=== PATIENT | female | born 1965 | race Caucasian/White ===

== ENCOUNTER → 2019-08-21 | Outpatient (CLI) | payer OTHER ==
--- NOTE | 2019-08-21 15:44 | RAD ---
AP and Lateral Views of the Chest 08/21/2019 3:21 PM Indication: Cough, shortness of breath. Chest pain Comparison: None Findings: There is no focal consolidation or infiltrate identified. The cardiomediastinal silhouette is within normal limits. There is no evidence of pneumothorax or pleural effusion. No acute osseous abnormalities are identified. Impression: No evidence of acute cardiopulmonary process. Electronically signed by: Jarad Maldonado MD (08/21/2019 3:41 PM) [id number]
== END | disposition home or self-care (01) ==
LOC: PMG 15:14
PROVIDERS: ATTEND Registered Nurse
DX: R05 Cough (principal); R06.02 Shortness of breath; R07.9 Chest pain, unspecified
CPT/HCPCS: 71046

== ENCOUNTER → 2019-12-27 | Outpatient (CLI) | payer OTHER ==
--- NOTE | 2019-12-27 17:06 | RAD ---
EXAM: Lumbar spine, 3 views; left shoulder, 4 views. HISTORY: Pain. COMPARISON: None. FINDINGS: Lumbar spine: 3 views of the lumbar spine are obtained. There is no listhesis. The vertebral bodies are normal in height and the disc space are preserved. There is facet arthropathy at the lower lumbar levels. Left shoulder: 4 views of the left shoulder are obtained. There is no fracture, dislocation or subluxation. IMPRESSION: No acute osseous finding. Electronically signed by: Yamel Lopes MD (12/27/2019 5:03 PM) [id number]
== END | disposition home or self-care (01) ==
LOC: DXRAD 15:26
PROVIDERS: ATTEND Registered Nurse
DX: M47.816 Spondylosis without myelopathy or radiculopathy, lumbar region (principal)
CPT/HCPCS: 72100; 73030

== ENCOUNTER 2020-01-19 08:14 | Emergency (ER) | payer OTHER ==
[~2020-01-19] VITALS: Ht 160 cm; Wt 88.1 kg
[2020-01-19] MEDS ORDERED: IV NORMAL SALINE 1,000ML 1,000 ML IV SCH (08:32)
[2020-01-19 08:51] LABS: BASO # 0.1 x10^3/uL (0.0-0.2); BASO % 1 % (0-3); EOS # 0.5 x10^3/uL (0.0-0.7); EOS % 6 % (0-3); HEMATOCRIT 43.8 % (36.0-47.0); HEMOGLOBIN 14.7 g/dL (12.0-15.5); LYMPH % 23 % (24-48); MEAN CORPUSCULAR HEMOGLOBIN 30 pg (25-35); MEAN CORPUSCULAR HGB CONC 33 g/dL (31-37); MEAN CORPUSCULAR VOLUME 90 fL (79-100); MONO # 0.6 x10^3/uL (0.0-1.1); MONO % 6 % (0-9); NEUT # 5.8 x10^3uL (1.8-7.7); NEUT % 65 % (31-73); PLATELET COUNT 267 x10^3/uL (140-400); RED BLOOD COUNT 4.88 x10^6/uL (3.50-5.40); RED CELL DISTRIBUTION WIDTH 13.6 % (11.5-14.5); WHITE BLOOD COUNT 8.9 x10^3/uL (4.0-11.0)
[2020-01-19 08:59] LABS: CALCIUM 9.9 mg/dL (8.5-10.1); GFR 57.4; POTASSIUM 3.8 mmol/L (3.5-5.1)
[2020-01-19] MEDS ORDERED: ONDANSETRON PF 4 MG/2 ML VIAL. IVP ONE (09:00)
[2020-01-19 09:07] LABS: ALBUMIN 3.9 g/dL (3.4-5.0); ALBUMIN/GLOBULIN RATIO 1.1 (1.0-1.7); TOTAL BILIRUBIN 0.4 mg/dL (0.2-1.0); TOTAL PROTEIN 7.6 g/dL (6.4-8.2)
[2020-01-19] MEDS ORDERED: IOHEXOL 300 MG/ML 75 ML VIAL. IV ONE (09:30)
[2020-01-19] MEDS ORDERED: CONTRAST GIVEN MC PRN (09:30)
[2020-01-19 09:47] VITALS: BP 114/69
--- NOTE | 2020-01-19 10:19 | RAD ---
Examination: CT of the abdomen pelvis with IV contrast HISTORY: History of right lower quadrant abdominal pain, nausea COMPARISON: 12/16/2005 TECHNIQUE: Axial CT images of the abdomen pelvis were performed with IV contrast. Coronal and sagittal reformats are performed Exposure: One or more of the following individualized dose reduction techniques were utilized for this examination: 1. Automated exposure control 2. Adjustment of the mA and/or kV according to patient size 3. Use of iterative reconstruction technique FINDINGS: 3 mm nodule identified in the right lung base. No evidence of free air identified in the abdomen. There is mild decreased attenuation noted in the liver likely hepatic steatosis. The spleen, adrenals grossly appears unremarkable. Small density identified in the proximal gallbladder likely sludge or gallstones. The stomach is mildly distended. The visualized pancreas grossly appears unremarkable. The small bowel is nondilated. The appendix is normal. Feces and gas noted in the colon. Mild right-sided hydronephrosis and hydroureter identified with inflammatory fat stranding right kidney in the right kidney. An obvious radiopaque obstructing calculus is not identified within the right ureter Moderate degenerative changes lower lumbar spine. IMPRESSION: 1. Right-sided hydronephrosis and hydroureter identified with surrounding inflammatory fat stranding could be urinary tract infection or secondary to obstruction. An obstructing radiopaque calculus is not evident. Underlying right ureteral mucosal pathology is not completely excluded. 2. Mild hepatic steatosis. 3. Density identified in the proximal gallbladder could be sludge or gallstones. Electronically signed by: Toribio Linares MD (01/19/2020 10:15 AM) [id number]
[2020-01-19 10:23] LABS: BACTERIA,URINE FEW /HPF (0-FEW); BILIRUBIN,URINE NEG (NEG); CLARITY,URINE HAZY; COLOR,URINE YELLOW; GLUCOSE,URINE NEG (NEG); HYALINE CASTS, URINE FEW /HPF; NITRITE,URINE NEG (NEG); RBC,URINE 20-40 /HPF (0-2); SQUAMOUS EPITHELIAL CELL,UR MANY /LPF; UROBILINOGEN,URINE 0.2 mg/dL (0.2 mg/dL); WBC,URINE OCC /HPF (0-4)
[2020-01-19] MEDS ORDERED: KETO10TA PO (10:50)
[2020-01-19] MEDS ORDERED: OXYC1TAB19 PO (10:50)
[2020-01-19] MEDS ORDERED: ONDA4TAB12 PO (10:50)
--- NOTE | 2020-01-19 10:50 | PHYS DOC ---
Past History Past Medical History: Depression, Diabetes, High Cholesterol, Hypertension, Hypothyroid, Other Additional Past Medical Histor: sleep apnea Past Surgical History: No Surgical History Alcohol Use: None Adult General Chief Complaint Chief Complaint: ABDOMINAL PAIN HPI HPI Patient is a 55-year-old female who presents with complaint of right lower abdominal pain that radiates around into her back. Patient states that pain had started this morning. She rates pain at an 829 out of 10. She does indicate that she has had a little bit of nausea but no vomiting. She denies any diarrhea. She also denies any fever. Patient states that nothing is improving the pain.[] Review of Systems Review of Systems Constitutional: Denies fever or chills [] Respiratory: Denies cough or shortness of breath [] Cardiovascular: No additional information not addressed in HPI [] GI: Complains of right lower abdominal pain with nausea. Denies vomiting or diarrhea [] : Denies dysuria or hematuria [] Musculoskeletal: Denies back pain or joint pain [] All other systems were reviewed and found to be within normal limits, except as documented in this note. Current Medications Current Medications Current Medications Medications (Trade) Dose Ordered Sig/Shayan Start Time Stop Time Status Last Admin Dose Admin Fentanyl Citrate (Fentanyl 2ml Vial) 50 mcg PRN Q15MIN PRN 01/19/20 08:45 01/20/20 08:44 01/19/20 08:44 50 MCG Info (Do NOT chart on this entry -- for MONITORING) 1 each PRN DAILY PRN 01/19/20 09:30 01/21/20 09:29 Iohexol (Omnipaque 300 Mg/ml) 75 ml 1X ONCE 01/19/20 09:30 01/19/20 09:31 DC 01/19/20 09:52 75 ML Ondansetron HCl (Zofran) 4 mg 1X ONCE 01/19/20 09:00 01/19/20 09:01 DC 01/19/20 08:44 4 MG Sodium Chloride 1,000 ml @ 1,000 mls/hr Q1H 01/19/20 08:32 01/19/20 09:31 DC 01/19/20 08:44 1,000 MLS/HR Allergies Allergies Allergies Coded Allergies Type Severity Reaction Last Updated Verified morphine Allergy Unknown 01/19/20 Yes Physical Exam Physical Exam Constitutional: Well developed, well nourished, no acute distress, non-toxic appearance. [] HENT: Normocephalic, atraumatic, bilateral external ears normal, oropharynx moist, no oral exudates, nose normal. [] Eyes: PERRLA, EOMI, conjunctiva normal, no discharge. [] Neck: Normal range of motion, no tenderness, supple, no stridor. [] Cardiovascular:Heart rate regular rhythm, no murmur [] Lungs & Thorax: Bilateral breath sounds clear to auscultation [] Abdomen: Bowel sounds normal, soft, with right lower abdominal tenderness. [] Skin: Warm, dry, no erythema, no rash. [] Extremities: No tenderness, no cyanosis, no clubbing, ROM intact, no edema. [] Neurologic: Alert and oriented X 3, no focal deficits noted. [] Current Patient Data Vital Signs Vital Signs Date Time Temp Pulse Resp B/P (MAP) Pulse Ox O2 Delivery O2 Flow Rate FiO2 01/19/20 08:14 97.6 84 16 161/107 (125) 95 Room Air Lab Results Laboratory Tests Test 01/19/20 08:35 01/19/20 09:46 White Blood Count 8.9 x10^3/uL (4.0-11.0) Red Blood Count 4.88 x10^6/uL (3.50-5.40) Hemoglobin 14.7 g/dL (12.0-15.5) Hematocrit 43.8 % (36.0-47.0) Mean Corpuscular Volume 90 fL (79-100) Mean Corpuscular Hemoglobin 30 pg (25-35) Mean Corpuscular Hemoglobin Concent 33 g/dL (31-37) Red Cell Distribution Width 13.6 % (11.5-14.5) Platelet Count 267 x10^3/uL (140-400) Neutrophils (%) (Auto) 65 % (31-73) Lymphocytes (%) (Auto) 23 % (24-48) L Monocytes (%) (Auto) 6 % (0-9) Eosinophils (%) (Auto) 6 % (0-3) H Basophils (%) (Auto) 1 % (0-3) Neutrophils # (Auto) 5.8 x10^3uL (1.8-7.7) Lymphocytes # (Auto) 2.0 x10^3/uL (1.0-4.8) Monocytes # (Auto) 0.6 x10^3/uL (0.0-1.1) Eosinophils # (Auto) 0.5 x10^3/uL (0.0-0.7) Basophils # (Auto) 0.1 x10^3/uL (0.0-0.2) Sodium Level 143 mmol/L (136-145) Potassium Level 3.8 mmol/L (3.5-5.1) Chloride Level 106 mmol/L (98-107) Carbon Dioxide Level 27 mmol/L (21-32) Anion Gap 10 (6-14) Blood Urea Nitrogen 27 mg/dL (7-20) H Creatinine 1.0 mg/dL (0.6-1.0) Estimated GFR (Cockcroft-Gault) 57.4 BUN/Creatinine Ratio 27 (6-20) H Glucose Level 127 mg/dL (70-99) H Calcium Level 9.9 mg/dL (8.5-10.1) Total Bilirubin 0.4 mg/dL (0.2-1.0) Aspartate Amino Transferase (AST) 14 U/L (15-37) L Alanine Aminotransferase (ALT) 24 U/L (14-59) Alkaline Phosphatase 94 U/L (46-116) Total Protein 7.6 g/dL (6.4-8.2) Albumin 3.9 g/dL (3.4-5.0) Albumin/Globulin Ratio 1.1 (1.0-1.7) Lipase 248 U/L (73-393) Urine Collection Type Unknown Urine Color Yellow Urine Clarity Hazy Urine pH 6.0 Urine Specific [place] 1.015 Urine Protein Neg (NEG-TRACE) Urine Glucose (UA) Neg mg/dL (NEG) Urine Ketones (Stick) Neg mg/dL (NEG) Urine Blood Large (NEG) Urine Nitrite Neg (NEG) Urine Bilirubin Neg (NEG) Urine Urobilinogen Dipstick 0.2 mg/dL (0.2 mg/dL) Urine Leukocyte Esterase Neg (NEG) Urine RBC 20-40 /HPF (0-2) Urine WBC Occ /HPF (0-4) Urine Squamous Epithelial Cells Many /LPF Urine Bacteria Few /HPF (0-FEW) Urine Hyaline Casts Few /HPF Urine Mucus Mod /LPF EKG EKG [] Radiology/Procedures Radiology/Procedures [] Impressions: PROCEDURE: CT ABD PELV W/ IV CONTRST ONLY Examination: CT of the abdomen pelvis with IV contrast HISTORY: History of right lower quadrant abdominal pain, nausea COMPARISON: 12/16/2005 TECHNIQUE: Axial CT images of the abdomen pelvis were performed with IV contrast. Coronal and sagittal reformats are performed Exposure: One or more of the following individualized dose reduction techniques were utilized for this examination: 1. Automated exposure control 2. Adjustment of the mA and/or kV according to patient size 3. Use of iterative reconstruction technique FINDINGS: 3 mm nodule identified in the right lung base. No evidence of free air identified in the abdomen. There is mild decreased attenuation noted in the liver likely hepatic steatosis. The spleen, adrenals grossly appears unremarkable. Small density identified in the proximal gallbladder likely sludge or gallstones. The stomach is mildly distended. The visualized pancreas grossly appears unremarkable. The small bowel is nondilated. The appendix is normal. Feces and gas noted in the colon. Mild right-sided hydronephrosis and hydroureter identified with inflammatory fat stranding right kidney in the right kidney. An obvious radiopaque obstructing calculus is not identified within the right ureter Moderate degenerative changes lower lumbar spine. IMPRESSION: 1. Right-sided hydronephrosis and hydroureter identified with surrounding inflammatory fat stranding could be urinary tract infection or secondary to obstruction. An obstructing radiopaque calculus is not evident. Underlying right ureteral mucosal pathology is not completely excluded. 2. Mild hepatic steatosis. 3. Density identified in the proximal gallbladder could be sludge or gallstones. Electronically signed by: Toribio Linares MD (01/19/2020 10:15 AM) [id number] DICTATED AND SIGNED BY: TORIBIO LINARES MD DATE: 01/19/20 1015 CC: GASTON MARCELO Jr. DO; DAVID HDZ ~ Course & Med Decision Making Course & Med Decision Making Pertinent Labs and Imaging studies reviewed. (See chart for details) [] Dragon Disclaimer Dragon Disclaimer This electronic medical record was generated, in whole or in part, using a voice recognition dictation system. Departure Departure: Impression: Primary Impression: Ureterolithiasis Additional Impression: Hydronephrosis Disposition: 01 HOME, SELF-CARE Condition: STABLE Referrals: DAVID HDZ NP-C (PCP) SURINDER BECKER MD Patient Instructions: Kidney Stones Additional Instructions: Call to schedule follow-up appointment with urology. Scripts Ondansetron (ONDANSETRON ODT) 4 Mg Tab.rapdis 1 TAB PO PRN Q6-8HRS PRN for NAUSEA, #12 TAB Prov: GASTON MARCELO Jr. DO 01/19/20 Ketorolac Tromethamine (KETOROLAC TROMETHAMINE) 10 Mg Tablet 1 TAB PO PRN Q6HRS for pain, #20 TAB Prov: GASTON MARCELO Jr. DO 01/19/20 Oxycodone Hcl/Acetaminophen (PERCOCET 7.5-325 MG TABLET ) 1 Each Tablet 1 TAB PO PRN QID PRN for PAIN MDD 4 Tablet(s) for 5 Days, #20 TAB 0 Refills Prov: GASTON MARCELO Jr. DO 01/19/20 Problem Qualifiers Additional Impression: Hydronephrosis Hydronephrosis type: unspecified Qualified Codes: N13.30 - Unspecified hydronephrosis GASTON MARCELO Jr. DO Jan 19, 2020 10:50
== END 2020-01-19 11:00 | disposition home or self-care (01) ==
LOC: ER 08:14
DX: N13.2 Hydronephrosis with renal and ureteral calculous obstruction (principal); E11.9 Type 2 diabetes mellitus without complications; E78.00 Pure hypercholesterolemia, unspecified; I10 Essential (primary) hypertension; E03.9 Hypothyroidism, unspecified; Z88.5 Allergy status to narcotic agent
CPT/HCPCS: 36415; 74177; 80053; 81001; 83690; 85025; 96374; 96375; 99285; J2405; J3010; Q9967; J7030

== ENCOUNTER → 2020-08-28 | Outpatient (CLI) | payer OTHER ==
[~2020-08-28] MED LIST: 0.9 % SODIUM CHLORIDE 10 ML VIAL. ONE; ATORVASTATIN CA80 MG PO; DEXAMETHASONE SOD PHOS 10 MG/ML VIAL. ONE; DULO60CA6 PO; ICOS0.5C PO; IOHEXOL 300 MG/ML 50 ML VIAL. ONE; KETO10TA PO; LEVO175T2 PO; LIDOCAINE 1% PF 30 ML VIAL. ONE; LISI1TAB37 PO; METF10007 PO; METO-239 PO; ONDA4TAB12 PO; OXYC1TAB19 PO; SEMA1PEN SQ
[2020-08-28 10:00] VITALS: BP 198/85
== END | disposition home or self-care (01) ==
LOC: SURG 09:20
PROVIDERS: ATTEND Anesthesiology
DX: M54.5 Low back pain (principal); M54.16 Radiculopathy, lumbar region; M54.12 Radiculopathy, cervical region; M79.10 Myalgia, unspecified site; M25.512 Pain in left shoulder; I10 Essential (primary) hypertension; E11.9 Type 2 diabetes mellitus without complications; E78.00 Pure hypercholesterolemia, unspecified; E03.9 Hypothyroidism, unspecified; F32.9 Major depressive disorder, single episode, unspecified; N13.2 Hydronephrosis with renal and ureteral calculous obstruction; Z90.710 Acquired absence of both cervix and uterus; Z88.5 Allergy status to narcotic agent; Z88.6 Allergy status to analgesic agent; Z98.890 Other specified postprocedural states
CPT/HCPCS: 62323; 72275; J1100; J2001; Q9967

== ENCOUNTER 2020-08-29 11:37 | Emergency (ER) | payer OTHER ==
[~2020-08-29] VITALS: Ht 160 cm; Wt 82.2 kg
[~2020-08-29 11:37] MED LIST changes: -0.9 % SODIUM CHLORIDE 10 ML VIAL. ONE; -DEXAMETHASONE SOD PHOS 10 MG/ML VIAL. ONE; -IOHEXOL 300 MG/ML 50 ML VIAL. ONE; -LIDOCAINE 1% PF 30 ML VIAL. ONE
[2020-08-29] MEDS ORDERED: ONDANSETRON PF 4 MG/2 ML VIAL. IVP ONE (12:00)
[2020-08-29 12:08] LABS: BASO # 0.2 x10^3/uL (0.0-0.2); BASO % 1 % (0-3); EOS % 0 % (0-3); HEMOGLOBIN 13.5 g/dL (12.0-15.5); LYMPH % 12 % (24-48); MEAN CORPUSCULAR HEMOGLOBIN 29 pg (25-35); MEAN CORPUSCULAR HGB CONC 33 g/dL (31-37); MEAN CORPUSCULAR VOLUME 89 fL (79-100); MONO # 1.1 x10^3/uL (0.0-1.1); MONO % 7 % (0-9); NEUT # 12.9 x10^3uL (1.8-7.7); NEUT % 80 % (31-73); PLATELET COUNT 340 x10^3/uL (140-400); RED BLOOD COUNT 4.61 x10^6/uL (3.50-5.40); RED CELL DISTRIBUTION WIDTH 14.1 % (11.5-14.5); WHITE BLOOD COUNT 16.2 x10^3/uL (4.0-11.0)
[2020-08-29 12:20] LABS: CALCIUM 9.7 mg/dL (8.5-10.1); CREATININE 1.1 mg/dL (0.6-1.0); GFR 51.4
--- NOTE | 2020-08-29 12:26 | RAD ---
EXAM: PORTABLE CHEST 1V INDICATION: Reason: CP / Spl. Instructions: / History: . TECHNIQUE: Single view COMPARISON: 08/21/2019 chest x-ray FINDINGS: The heart size is normal. The great vessels appear unremarkable. There is no hilar or mediastinal mass. The lungs are clear. There is no pleural effusion or pneumothorax. There are no significant osseous abnormalities. IMPRESSION: No active cardiopulmonary disease. Electronically signed by: Ashly Durán MD (08/29/2020 12:23 PM) [id number]
[2020-08-29 12:31] LABS: ALBUMIN 3.9 g/dL (3.4-5.0); ALBUMIN/GLOBULIN RATIO 1.1 (1.0-1.7); TOTAL BILIRUBIN 0.5 mg/dL (0.2-1.0); TOTAL PROTEIN 7.3 g/dL (6.4-8.2)
--- NOTE | 2020-08-29 13:07 | EKG ---
[address] [address] Test Date: 2020-08-29 Test Time: 12:41:59 Pat Name: SANTINO NOBLE Department: Room: Gender: F [employer]: : 1965 Requested By: CLAUDINE MAGUIRE Order Number: [id number] Reading MD: Raymond Mares Measurements Intervals [place] Rate: 77 P: 33 MS: 182 QRS: -20 QRSD: 82 T: 13 QT: 390 QTc: 443 Interpretive Statements SINUS RHYTHM LEFTWARD AXIS QRS(T) CONTOUR ABNORMALITY CONSIDER INFERIOR INFARCT POSSIBLY ABNORMAL ECG RI6.02 No previous ECG available for comparison Electronically Signed On 09-03-2020 11:30:03 PEDIATRIC PHYSICAL THERAPY ASSISTANT by Raymond Mares
[2020-08-29 14:47] LABS: % LYMPHS 15 % (24-48); % MONOS 3 % (0-10); % SEGS 82 % (35-66); PLT ESTIMATE ADEQUATE (ADEQUATE)
[2020-08-29 15:28] LABS: BACTERIA,URINE MOD /HPF (0-FEW); BILIRUBIN,URINE NEG (NEG); CLARITY,URINE HAZY; COLOR,URINE YELLOW; GLUCOSE,URINE NEG (NEG); NITRITE,URINE NEG (NEG); SQUAMOUS EPITHELIAL CELL,UR MANY /LPF; UROBILINOGEN,URINE 0.2 mg/dL (0.2 mg/dL)
--- NOTE | 2020-08-29 15:52 | RAD ---
Right upper quadrant abdominal ultrasound INDICATION: Right upper quadrant abdominal pain FINDINGS: Echogenic liver, consistent with fatty infiltration. No mass or contour nodularity. Patent, normal directional flow in the main portal vein. The gallbladder shows diffuse wall thickening up to 4.9 mm and there is a positive sonographic Apple sign. Some pericholecystic fluid is also seen. No definite gallstones. Right kidney is normal measuring 10.2 x 5.1 x 4.8 cm. Pancreas is poorly visualized due to bowel gas. The IVC and abdominal aorta were poorly visualized as well due to bowel gas. IMPRESSION: Findings consistent with acute cholecystitis. No biliary dilation identified. Electronically signed by: Ashly Durán MD (08/29/2020 3:49 PM) [id number]
[2020-08-29] MEDS ORDERED: IV NORMAL SALINE 1,000ML 1,000 ML IV ONE (16:15)
[2020-08-29] MEDS ORDERED: PIPERACILLIN/TAZOBACTAM 3.375 GM in IV NORMAL SALINE 50ML 50 ML IV ONE (16:15)
[2020-08-29] MEDS ORDERED: PIPERACILLIN/TAZOBACTAM 3.375 GM VIAL IV ONE (16:22)
[2020-08-29] MEDS ORDERED: IV NORMAL SALINE 50ML 50 ML ONE (16:22)
--- NOTE | 2020-08-29 17:34 | PHYS DOC ---
Past History Past Medical History: Depression, Diabetes, High Cholesterol, Hypertension, Hypothyroid, Other Additional Past Medical Histor: sleep apnea Past Surgical History: Hysterectomy Alcohol Use: None Adult General Chief Complaint Chief Complaint: CHEST PAIN HPI HPI Patient is a 55-year-old female patient with history of hypertension, high cholesterol, diabetes type 2, who presents to the ED today complaining of sharp intermittent 7 out of 10 right upper quadrant abdominal pain radiating to the back that began this morning when she woke up. Patient is also complaining of nausea and vomiting. Denies anything specifically exacerbating or relieving her pain. Review of Systems Review of Systems Constitutional: Denies fever or chills [] Eyes: Denies change in visual acuity, redness, or eye pain [] HENT: Denies nasal congestion or sore throat [] Respiratory: Denies cough or shortness of breath [] Cardiovascular: No additional information not addressed in HPI [] GI: Reports right upper quadrant abdominal pain with nausea and vomiting, denies bloody stools or diarrhea [] : Denies dysuria or hematuria [] Musculoskeletal: Denies back pain or joint pain [] Integument: Denies rash or skin lesions [] Neurologic: Denies headache, focal weakness or sensory changes [] All other systems were reviewed and found to be within normal limits, except as documented in this note. Current Medications Current Medications Current Medications Medications (Trade) Dose Ordered Sig/Shayan Start Time Stop Time Status Last Admin Dose Admin Fentanyl Citrate (Fentanyl 2ml Vial) 50 mcg 1X ONCE 08/29/20 17:00 08/29/20 17:01 DC 08/29/20 16:53 50 MCG Ondansetron HCl (Zofran) 4 mg 1X ONCE 08/29/20 12:00 08/29/20 12:01 DC 08/29/20 11:56 4 MG Piperacillin Sod/ Tazobactam Sod (Zosyn) 3.375 gm STK-MED ONCE 08/29/20 16:22 08/29/20 16:23 DC Piperacillin Sod/ Tazobactam Sod 3.375 gm/Sodium Chloride 50 ml @ 100 mls/hr 1X ONCE 08/29/20 16:15 08/29/20 16:44 DC 08/29/20 16:25 100 MLS/HR Sodium Chloride 50 ml @ As Directed STK-MED ONCE 08/29/20 16:22 08/29/20 16:22 DC Allergies Allergies Allergies Coded Allergies Type Severity Reaction Last Updated Verified morphine Allergy Unknown 01/19/20 Yes Physical Exam Physical Exam Constitutional: Well developed, well nourished, no acute distress, non-toxic appearance. [] HENT: Normocephalic, atraumatic, bilateral external ears normal, oropharynx moist, no oral exudates, nose normal. [] Eyes: PERRLA, EOMI, conjunctiva normal, no discharge. [] Neck: Normal range of motion, no tenderness, supple, no stridor. [] Cardiovascular:Heart rate regular rhythm, no murmur [] Lungs & Thorax: Bilateral breath sounds clear to auscultation [] Abdomen: Bowel sounds normal, soft, mild tenderness to the right upper quadrant with positive Apple sign, no right lower quadrant tenderness no masses, no pulsatile masses. [] Skin: Warm, dry, no erythema, no rash. [] Back: No tenderness, no CVA tenderness. [] Extremities: No tenderness, no cyanosis, no clubbing, ROM intact, no edema. [] Neurologic: Alert and oriented X 3, normal motor function, normal sensory function, no focal deficits noted. [] Psychologic: Affect normal, judgement normal, mood normal. [] Current Patient Data Vital Signs Vital Signs Date Time Temp Pulse Resp B/P (MAP) Pulse Ox O2 Delivery O2 Flow Rate FiO2 08/29/20 16:53 16 98 Room Air 08/29/20 16:52 74 160/85 (110) 08/29/20 11:44 97.9 Lab Results Laboratory Tests Test 08/29/20 11:54 08/29/20 14:00 White Blood Count 16.2 x10^3/uL (4.0-11.0) H Red Blood Count 4.61 x10^6/uL (3.50-5.40) Hemoglobin 13.5 g/dL (12.0-15.5) Hematocrit 41.0 % (36.0-47.0) Mean Corpuscular Volume 89 fL (79-100) Mean Corpuscular Hemoglobin 29 pg (25-35) Mean Corpuscular Hemoglobin Concent 33 g/dL (31-37) Red Cell Distribution Width 14.1 % (11.5-14.5) Platelet Count 340 x10^3/uL (140-400) Neutrophils (%) (Auto) 80 % (31-73) H Lymphocytes (%) (Auto) 12 % (24-48) L Monocytes (%) (Auto) 7 % (0-9) Eosinophils (%) (Auto) 0 % (0-3) Basophils (%) (Auto) 1 % (0-3) Neutrophils # (Auto) 12.9 x10^3uL (1.8-7.7) H Lymphocytes # (Auto) 2.0 x10^3/uL (1.0-4.8) Monocytes # (Auto) 1.1 x10^3/uL (0.0-1.1) Eosinophils # (Auto) 0.0 x10^3/uL (0.0-0.7) Basophils # (Auto) 0.2 x10^3/uL (0.0-0.2) Segmented Neutrophils % 82 % (35-66) H Lymphocytes % 15 % (24-48) L Monocytes % 3 % (0-10) Platelet Estimate Adequate (ADEQUATE) Sodium Level 143 mmol/L (136-145) Potassium Level 4.0 mmol/L (3.5-5.1) Chloride Level 105 mmol/L (98-107) Carbon Dioxide Level 25 mmol/L (21-32) Anion Gap 13 (6-14) Blood Urea Nitrogen 35 mg/dL (7-20) H Creatinine 1.1 mg/dL (0.6-1.0) H Estimated GFR (Cockcroft-Gault) 51.4 BUN/Creatinine Ratio 32 (6-20) H Glucose Level 124 mg/dL (70-99) H Calcium Level 9.7 mg/dL (8.5-10.1) Total Bilirubin 0.5 mg/dL (0.2-1.0) Aspartate Amino Transferase (AST) 65 U/L (15-37) H Alanine Aminotransferase (ALT) 55 U/L (14-59) Alkaline Phosphatase 103 U/L (46-116) Troponin I Quantitative < 0.017 ng/mL (0-0.055) HX-Mmb-G-Type Natriuretic Peptide 88 pg/mL (0-124) Total Protein 7.3 g/dL (6.4-8.2) Albumin 3.9 g/dL (3.4-5.0) Albumin/Globulin Ratio 1.1 (1.0-1.7) Urine Collection Type Unknown Urine Color Yellow Urine Clarity Hazy Urine pH 5.0 Urine Specific [place] >=1.030 Urine Protein 30 mg/dl (NEG-TRACE) Urine Glucose (UA) Neg mg/dL (NEG) Urine Ketones (Stick) Neg mg/dL (NEG) Urine Blood Trace (NEG) Urine Nitrite Neg (NEG) Urine Bilirubin Neg (NEG) Urine Urobilinogen Dipstick 0.2 mg/dL (0.2 mg/dL) Urine Leukocyte Esterase Neg (NEG) Urine RBC 1-2 /HPF (0-2) Urine WBC 5-10 /HPF (0-4) Urine Squamous Epithelial Cells Many /LPF Urine Bacteria Mod /HPF (0-FEW) EKG EKG 1247 sinus rhythm, normal interval, left axis deviation no STEMI[] Radiology/Procedures Radiology/Procedures []PROCEDURE: ABDOMEN LTD Right upper quadrant abdominal ultrasound INDICATION: Right upper quadrant abdominal pain FINDINGS: Echogenic liver, consistent with fatty infiltration. No mass or contour nodularity. Patent, normal directional flow in the main portal vein. The gallbladder shows diffuse wall thickening up to 4.9 mm and there is a positive sonographic Apple sign. Some pericholecystic fluid is also seen. No definite gallstones. Right kidney is normal measuring 10.2 x 5.1 x 4.8 cm. Pancreas is poorly visualized due to bowel gas. The IVC and abdominal aorta were poorly visualized as well due to bowel gas. IMPRESSION: Findings consistent with acute cholecystitis. No biliary dilation identified. Electronically signed by: Francine Durán MD (08/29/2020 3:49 PM) [id number] DICTATED AND SIGNED BY: FRANCINE DURÁN MD DATE: 08/29/20 1549 CC: CLAUDINE MAGUIRE DO; MOISES CESPEDES APRN; JESU ISSA MD ~ PROCEDURE: PORTABLE CHEST 1V EXAM: PORTABLE CHEST 1V INDICATION: Reason: CP / Spl. Instructions: / History: . TECHNIQUE: Single view COMPARISON: 08/21/2019 chest x-ray FINDINGS: The heart size is normal. The great vessels appear unremarkable. There is no hilar or mediastinal mass. The lungs are clear. There is no pleural effusion or pneumothorax. There are no significant osseous abnormalities. IMPRESSION: No active cardiopulmonary disease. Electronically signed by: Francine Durán MD (08/29/2020 12:23 PM) [id number] DICTATED AND SIGNED BY: FRANCINE DURÁN MD DATE: 08/29/20 1223 CC: CLAUDINE MAGUIRE DO; JESU ISSA MD ~ Heart Score Risk Factors: Risk Factors: DM, Current or recent (<one month) smoker, HTN, HLP, family history of CAD, obesity. Risk Scores: Risk Factors: DM, Current or recent (<one month) smoker, HTN, HLP, family history of CAD, obesity. Course & Med Decision Making Course & Med Decision Making Pertinent Labs and Imaging studies reviewed. (See chart for details) This is a 55-year-old female patient presented to the ED today with right upper quadrant abdominal pain that began this morning. Vitals on arrival to the ED temperature 97.9, heart rate 84 respirations 16 blood pressure 201/127, blood pressure came down to 160/85. CBC with a WBC of 16.2, CMP with no acute findings, urine analysis negative for any acute findings. Right upper quadrant abdomen was positive for cholecystitis. Patient was given Zosyn and IV fluids as well as nausea medicine. Pain is well controlled. Spoke with Dr. Ng who accepted patient [id number] Cash who accepted patient at [facility]. Dragon Disclaimer Dragon Disclaimer This electronic medical record was generated, in whole or in part, using a voice recognition dictation system. Departure Departure: Impression: Primary Impression: Acute cholecystitis Disposition: 01 DC HOME SELF CARE/HOMELESS Condition: STABLE Referrals: JESU ISSA MD (PCP) MOISES CESPEDES BRANCH DIRECTOR Aug 29, 2020 17:34
[2020-08-29 18:53] VITALS: BP 118/80
== END 2020-08-29 20:02 | disposition home or self-care (01) ==
LOC: ER 11:37
DX: K81.0 Acute cholecystitis (principal); R10.11 Right upper quadrant pain; R11.2 Nausea with vomiting, unspecified; F32.9 Major depressive disorder, single episode, unspecified; E11.9 Type 2 diabetes mellitus without complications; E78.00 Pure hypercholesterolemia, unspecified; I10 Essential (primary) hypertension; E03.9 Hypothyroidism, unspecified; Z98.890 Other specified postprocedural states; Z90.710 Acquired absence of both cervix and uterus; Z88.6 Allergy status to analgesic agent
CPT/HCPCS: 36415; 71045; 76705; 80053; 81001; 83880; 84484; 85007; 85025; 93005; 96365; 96375; 99285; J2405; J2543; J3010; J7030

== ENCOUNTER 2020-10-25 16:27 | Emergency (ER) | payer OTHER ==
[~2020-10-25] VITALS: Ht 160 cm; Wt 90.1 kg
--- NOTE | 2020-10-25 16:42 | PHYS DOC ---
Past History Past Medical History: Depression, Diabetes, High Cholesterol, Hypertension, Hypothyroid, Other Additional Past Medical Histor: sleep apnea (DANILO OLVERA DO) Past Medical History: Gallstones Past Medical History Obese (JOSIE HERMOSILLO MD) Past Surgical History: Hysterectomy (DANILO OLVERA DO) Past Surgical History: Cholecystectomy (JOSIE HERMOSILLO MD) Alcohol Use: None (DANILO OLVERA DO) General Adult EDM: Chief Complaint: CHEST PAIN HPI: HPI: 55-year-old female past medical history hypertension hyperlipidemia diabetes presents with a chief complaint of left-sided chest discomfort. Patient states pain started approximately 30 minutes prior to arrival. Is located in her left chest. Patient states pain comes and goes. She has had associated nausea and has vomited. (SIMONADANILO Larry SANDS) Review of Systems: Review of Systems: Constitutional: Denies fever or chills Eyes: Denies change in visual acuity HENT: Denies nasal congestion or sore throat Respiratory: Denies cough or shortness of breath Cardiovascular: Denies chest pain or edema GI: Denies abdominal pain, nausea, vomiting, bloody stools or diarrhea : Denies dysuria Musculoskeletal: Denies back pain or joint pain Integument: Denies rash Neurologic: Denies headache, focal weakness or sensory changes Endocrine: Denies polyuria or polydipsia Lymphatic: Denies swollen glands Psychiatric: Denies depression or anxiety (SIMONADANILO Larry SANDS) Allergies: Allergies: Allergies Coded Allergies Type Severity Reaction Last Updated Verified morphine Allergy Unknown 10/25/20 Yes (SIMONADANILO Juarez ) Physical Exam: PE: Constitutional: Well developed, well nourished, no acute distress, non-toxic appearance. [] HENT: Normocephalic, atraumatic, bilateral external ears normal, oropharynx moist, no oral exudates, nose normal. [] Eyes: PERRLA, EOMI, conjunctiva normal, no discharge. [] Neck: Normal range of motion, no tenderness, supple, no stridor. [] Cardiovascular:Heart rate regular rhythm, no murmur [] Lungs & Thorax: Bilateral breath sounds clear to auscultation [] Abdomen: Bowel sounds normal, soft, no tenderness, no masses, no pulsatile masses. [] Skin: Warm, dry, no erythema, no rash. [] Back: No tenderness, no CVA tenderness. [] Extremities: No tenderness, no cyanosis, no clubbing, ROM intact, no edema. [] Neurologic: Alert and oriented X 3, normal motor function, normal sensory function, no focal deficits noted. [] Psychologic: Affect normal, judgement normal, mood normal. [] (DANILO OLVERA DO) EKG: EKG: EKG performed at 1635 heart rate [address] elevation no ST depression no acute [place] [] (DANILO OLVERA DO) Radiology/Procedures: Radiology/Procedures: [][place] [address] IMAGING REPORT Signed PATIENT: SANTINO NOBLE AACCOUNT: [id number] : 1965 LOCATION: ER AGE: 55 SEX: F EXAM STATUS: REG ER ORD. PHYSICIAN: DANILO OLVERA DO REASON: CHEST PAIN PROCEDURE: CHEST AP ONLY Exam: Chest one view INDICATION: Chest pain TECHNIQUE: Frontal view of the chest Comparisons: None FINDINGS: The cardiomediastinal silhouette and pulmonary vessels are within normal limits. The lung and pleural spaces are clear. IMPRESSION: No acute cardiopulmonary process. Electronically signed by: Liss Hyatt MD (10/25/2020 5:29 PM) [id number] DICTATED AND SIGNED BY: LISS HYATT MD DATE: 10/25/20 1729 CC: DANILO OLVERA DO; JESU ISSA MD ~MTH0 0 (DANILO OLVERA DO) Heart Score: HEART Score for Chest Pain: HEART Score for Chest Pain Response (Comments) Value History Moderately Suspicious 1 ECG Normal 0 Age >45 - < 65 1 Risk Factors >3 Risk Factors or Hx CAD 2 Troponin < Normal Limit 0 Total 4 Risk Factors: Risk Factors: DM, Current or recent (<one month) smoker, HTN, HLP, family history of CAD, obesity. Risk Scores: Score 0 - 3: 2.5% MACE over next 6 weeks - Discharge Home Score 4 - 6: 20.3% MACE over next 6 weeks - Admit for Clinical Observation Score 7 - 10: 72.7% MACE over next 6 weeks - Early Invasive Strategies (DANILO OLVERA DO) Course & Med Decision Making: Course & Med Decision Making Pertinent Labs and Imaging studies reviewed. (See chart for details) See Dr. Olvera chart for details. Awaiting repeat trop and lipase at 1830 hrs. Impression: 1. Chest Pain 2. [] (DANILO OLVERA DO) Course & Med Decision Making See Dr Olvera chart for details. Awaiting repeat Lipase and Trop. at 1830 hrs. Awaiting Trop 1900. Pt. states pain is relieved. Requesting discharge home. Pt. declined CT to evaluate pancreas and epigastric pain. Patient did have her gallbladder out on August 30 of this year. Patient insisted on discharge. Recommend clear fluid diet. Take Pepcid 20 mg twice a day. Have repeat amylase and lipase testing. Follow-up primary care. Consider outpatient stress testing. Return if any concerns. Impression: 1. Atypical Chest Pain ( two normal Trops.) 2. Epigastric Pain 3. Elevated Lipase 396 (JOSIE HERMOSILLO MD) Dragon Disclaimer: Dragon Disclaimer: This electronic medical record was generated, in whole or in part, using a voice recognition dictation system. (DANILO OLVERA DO) Departure Departure: Impression: Primary Impression: Chest pain Referrals: JESU ISSA MD (PCP) Scripts Famotidine (PEPCID) 20 Mg Tablet 20 MG PO BID for gastritis for 30 Days, #60 TAB Prov: JOSIE HERMOSILLO MD 10/25/20 Dragon Disclaimer This chart was dictated in whole or in part using Voice Recognition software in a busy, high-work load, and often noisy Emergency Department environment. It may contain unintended and wholly unrecognized errors or omissions. (JOSIE HERMOSILLO MD) DANILO OLVERA DO Oct 25, 2020 16:42 JOSIE HERMOSILLO MD Oct 25, 2020 18:31
[2020-10-25] MEDS ORDERED: NITROGLYCERIN SUBLINGUAL 0.4 MG BOTTLE OF 25. SL PRN (17:00)
--- NOTE | 2020-10-25 17:00 | EKG ---
[facility] ED [facility] [address] [place] [address] Test Date: 2020-10-25 Test Time: 16:35:27 Pat Name: SANTINO NOBLE Department: Room: Gender: F Core Filer: : 1965 Requested By: DANILO JARVIS Order Number: [id number] Reading MD: Measurements Intervals [place] Rate: 82 P: 31 MA: 162 QRS: -26 QRSD: 70 T: 26 QT: 362 QTc: 426 Interpretive Statements SINUS RHYTHM LEFTWARD AXIS LOW VOLTAGE QRS(T) CONTOUR ABNORMALITY CONSISTENT WITH INFERIOR INFARCT PROBABLY OLD ABNORMAL ECG RI6.02 No previous ECG available for comparison
[2020-10-25 17:03] LABS: BASO # 0.2 x10^3/uL (0.0-0.2); BASO % 2 % (0-3); EOS # 0.3 x10^3/uL (0.0-0.7); EOS % 3 % (0-3); HEMATOCRIT 40.3 % (36.0-47.0); HEMOGLOBIN 13.4 g/dL (12.0-15.5); LYMPH # 2.3 x10^3/uL (1.0-4.8); LYMPH % 26 % (24-48); MEAN CORPUSCULAR HEMOGLOBIN 30 pg (25-35); MEAN CORPUSCULAR HGB CONC 33 g/dL (31-37); MEAN CORPUSCULAR VOLUME 91 fL (79-100); MONO # 0.6 x10^3/uL (0.0-1.1); MONO % 7 % (0-9); NEUT # 5.4 x10^3uL (1.8-7.7); NEUT % 62 % (31-73); PLATELET COUNT 260 x10^3/uL (140-400); RED BLOOD COUNT 4.45 x10^6/uL (3.50-5.40); RED CELL DISTRIBUTION WIDTH 14.1 % (11.5-14.5); WHITE BLOOD COUNT 8.8 x10^3/uL (4.0-11.0)
[2020-10-25 17:11] LABS: CALCIUM 9.1 mg/dL (8.5-10.1); CREATININE 1.1 mg/dL (0.6-1.0); GFR 51.4; POTASSIUM 3.6 mmol/L (3.5-5.1)
[2020-10-25 17:17] LABS: ALBUMIN 3.4 g/dL (3.4-5.0); ALBUMIN/GLOBULIN RATIO 0.9 (1.0-1.7); TOTAL BILIRUBIN 0.2 mg/dL (0.2-1.0); TOTAL PROTEIN 7.2 g/dL (6.4-8.2)
--- NOTE | 2020-10-25 17:32 | RAD ---
Exam: Chest one view INDICATION: Chest pain TECHNIQUE: Frontal view of the chest Comparisons: None FINDINGS: The cardiomediastinal silhouette and pulmonary vessels are within normal limits. The lung and pleural spaces are clear. IMPRESSION: No acute cardiopulmonary process. Electronically signed by: Liss Zepeda MD (10/25/2020 5:29 PM) [id number]
[2020-10-25 18:25] VITALS: BP 125/68
[2020-10-25] MEDS ORDERED: FAMOTIDINE 20 MG/2 ML VIAL IVP ONE (19:00)
[2020-10-25] MEDS ORDERED: FAMO-63 PO (19:06)
== END 2020-10-25 19:37 | disposition home or self-care (01) ==
LOC: ER 16:27
DX: R07.89 Other chest pain (principal); R10.13 Epigastric pain; R74.8 Abnormal levels of other serum enzymes; Z90.49 Acquired absence of other specified parts of digestive tract; Z90.710 Acquired absence of both cervix and uterus
CPT/HCPCS: 36415; 71045; 80053; 83690; 84484; 85025; 93005; 96374; 99285; J3490

== ENCOUNTER 2020-11-14 19:04 | Observation (INO) | payer OTHER ==
[~2020-11-14] VITALS: Ht 160 cm; Wt 88.1 kg
[~2020-11-14 19:04] MED LIST changes: +FAMO-63 PO
[2020-11-14] MEDS ORDERED: FAMOTIDINE 20 MG/2 ML VIAL IVP ONE (19:15)
[2020-11-14] MEDS ORDERED: LIDO:MAALOX 1:1 20 ML SINGLE DOSE. PO ONE (19:15)
[2020-11-14] MEDS ORDERED: ASPIRIN 325 MG TABLET PO ONE (19:15)
[2020-11-14] MEDS ORDERED: NITROGLYCERIN SUBLINGUAL 0.4 MG BOTTLE OF 25. SL PRN ×2 (19:15→21:00)
--- NOTE | 2020-11-14 19:47 | PHYS DOC ---
Past History Past Medical History: Arthritis, Diabetes, Gallstones, High Cholesterol, Hypertension, Hypothyroid Additional Past Medical Histor: sleep apnea,gastritis Past Surgical History: Cholecystectomy Alcohol Use: None Adult General Chief Complaint Chief Complaint: CHEST PAIN HPI HPI Patient is a 55-year-old female patient with history of diabetes type 2, hypertension, high cholesterol, among other illnesses who presents to the ED today complaining of a 7 out of 10 sharp intermittent substernal chest pain that began an hour prior to coming to the ED. Patient denies any other associated symptoms with her pain. Denies any exacerbating or relieving factors. She states she had similar pain on Day came to the ED was evaluated and they thought was gastritis. Review of Systems Review of Systems Constitutional: Denies fever or chills [] Eyes: Denies change in visual acuity, redness, or eye pain [] HENT: Denies nasal congestion or sore throat [] Respiratory: Denies cough or shortness of breath [] Cardiovascular: Reports substernal chest pain GI: Denies abdominal pain, nausea, vomiting, bloody stools or diarrhea [] : Denies dysuria or hematuria [] Musculoskeletal: Denies back pain or joint pain [] Integument: Denies rash or skin lesions [] Neurologic: Denies headache, focal weakness or sensory changes [] All other systems were reviewed and found to be within normal limits, except as documented in this note. Current Medications Current Medications Current Medications Medications (Trade) Dose Ordered Sig/Shayan Start Time Stop Time Status Last Admin Dose Admin Aspirin (Evaristo Aspirin) 325 mg 1X ONCE 11/14/20 19:15 11/14/20 19:35 DC Famotidine (Pepcid Vial) 20 mg 1X ONCE 11/14/20 19:15 11/14/20 19:35 DC Fentanyl Citrate (Fentanyl 2ml Vial) 50 mcg PRN Q15MIN PRN 11/14/20 19:15 11/15/20 19:14 Multi-Ingredient Mouthwash/Gargle (Gi Cocktail) 20 ml 1X ONCE 11/14/20 19:15 11/14/20 19:35 DC Nitroglycerin (Nitrostat) 0.4 mg PRN Q5MIN PRN 11/14/20 19:15 11/15/20 19:14 Allergies Allergies Allergies Coded Allergies Type Severity Reaction Last Updated Verified morphine Allergy Unknown 10/25/20 Yes Physical Exam Physical Exam Constitutional: Well developed, well nourished, no acute distress, non-toxic appearance. [] HENT: Normocephalic, atraumatic, bilateral external ears normal, oropharynx moist, no oral exudates, nose normal. [] Eyes: PERRLA, EOMI, conjunctiva normal, no discharge. [] Neck: Normal range of motion, no tenderness, supple, no stridor. [] Cardiovascular:Heart rate regular rhythm, no murmur [] Lungs & Thorax: Bilateral breath sounds clear to auscultation [] Abdomen: Bowel sounds normal, soft, no tenderness, no masses, no pulsatile masses. [] Skin: Warm, dry, no erythema, no rash. [] Back: No tenderness, no CVA tenderness. [] Extremities: No tenderness, no cyanosis, no clubbing, ROM intact, no edema. [] Neurologic: Alert and oriented X 3, normal motor function, normal sensory function, no focal deficits noted. [] Psychologic: Affect normal, judgement normal, mood normal. [] Current Patient Data Vital Signs Vital Signs Date Time Temp Pulse Resp B/P (MAP) Pulse Ox O2 Delivery O2 Flow Rate FiO2 11/14/20 19:04 98.1 83 18 150/91 (110) 95 Room Air EKG EKG [address] Arnold sinus rhythm HR 83 no STEMI[] Radiology/Procedures Radiology/Procedures []PROCEDURE: PORTABLE CHEST 1V EXAM: CHEST 1 VIEW History: Chest pain COMPARISON: 10/25/2020. TECHNIQUE: Single portable radiograph of the chest FINDINGS: The cardiac silhouette is unremarkable. The lungs are clear bilaterally. The costophrenic sulci are clear and well demarcated. IMPRESSION: No radiographic evidence of an acute cardiopulmonary process. Electronically signed by: Toribio Linaers MD (11/14/2020 7:51 PM) [id number] DICTATED AND SIGNED BY: TORIBIO LINARES MD DATE: 11/14/201950 CC: MOISES CESPEDES APRN; JESU ISSA MD ~MTH0 0 Heart Score HEART Score for Chest Pain: HEART Score for Chest Pain Response (Comments) Value History Slighlty/Non-Suspicious 0 ECG Normal 0 Age >45 - < 65 1 Risk Factors >3 Risk Factors or Hx CAD 2 Troponin < Normal Limit 0 Total 3 Risk Factors: Risk Factors: DM, Current or recent (<one month) smoker, HTN, HLP, family history of CAD, obesity. Risk Scores: Risk Factors: DM, Current or recent (<one month) smoker, HTN, HLP, family hist ory of CAD, obesity. Course & Med Decision Making Course & Med Decision Making Pertinent Labs and Imaging studies reviewed. (See chart for details) This is a 55-year-old female patient presented to the ED today complaining of substernal chest pain, symptoms began 1 hour prior to coming to the ED. EKG is negative. Chest x-ray is negative. Troponin is normal, CBC with no acute findings, CMP with AST of 195, ALT of 111, ALT of 283, history of cholecystectomy Spoke with Dr. Tse who accepted patient for admission for chest pain rule out Cardiology consult placed Dragon Disclaimer Dragon Disclaimer This electronic medical record was generated, in whole or in part, using a voice recognition dictation system. Departure Departure: Impression: Primary Impression: Chest pain Disposition: ADMITTED INPT THIS HOSP Admitting Physician: Mc Tse Condition: STABLE Referrals: JESU ISSA MD (PCP) Problem Qualifiers Primary Impression: Chest pain Chest pain type: unspecified Qualified Codes: R07.9 - Chest pain, unspecified MOISES CESPEDES HAM CURER Nov 14, 2020 19:47
--- NOTE | 2020-11-14 19:54 | RAD ---
EXAM: CHEST 1 VIEW History: Chest pain COMPARISON: 10/25/2020. TECHNIQUE: Single portable radiograph of the chest FINDINGS: The cardiac silhouette is unremarkable. The lungs are clear bilaterally. The costophrenic sulci are clear and well demarcated. IMPRESSION: No radiographic evidence of an acute cardiopulmonary process. Electronically signed by: Toribio Linares MD (11/14/2020 7:51 PM) [id number]
[2020-11-14 19:55] LABS: BASO # 0.1 x10^3/uL (0.0-0.2); BASO % 2 % (0-3); EOS # 0.1 x10^3/uL (0.0-0.7); EOS % 2 % (0-3); HEMATOCRIT 39.2 % (36.0-47.0); LYMPH # 2.1 x10^3/uL (1.0-4.8); LYMPH % 29 % (24-48); MEAN CORPUSCULAR HEMOGLOBIN 30 pg (25-35); MEAN CORPUSCULAR HGB CONC 33 g/dL (31-37); MEAN CORPUSCULAR VOLUME 90 fL (79-100); MONO # 0.7 x10^3/uL (0.0-1.1); MONO % 10 % (0-9); NEUT # 4.1 x10^3uL (1.8-7.7); NEUT % 58 % (31-73); PLATELET COUNT 289 x10^3/uL (140-400); RED BLOOD COUNT 4.35 x10^6/uL (3.50-5.40); RED CELL DISTRIBUTION WIDTH 14.1 % (11.5-14.5)
[2020-11-14 20:11] LABS: ANION GAP 6 (6-14); BLOOD UREA NITROGEN 26 mg/dL (7-20); BUN/CREATININE RATIO 33 (6-20); CARBON DIOXIDE 31 mmol/L (21-32); CHLORIDE 107 mmol/L (98-107); CREATININE 0.8 mg/dL (0.6-1.0); GFR 74.2; GLUCOSE 114 mg/dL (70-99); POTASSIUM 3.9 mmol/L (3.5-5.1); SODIUM 144 mmol/L (136-145)
[2020-11-14 20:19] LABS: BILIRUBIN,URINE NEG (NEG); CLARITY,URINE HAZY; COLOR,URINE YELLOW; GLUCOSE,URINE NEG (NEG)
[2020-11-14 20:20] LABS: BACTERIA,URINE MOD /HPF (0-FEW); NITRITE,URINE NEG (NEG); RBC,URINE RARE /HPF (0-2); SQUAMOUS EPITHELIAL CELL,UR MOD /LPF; WBC,URINE RARE /HPF (0-4)
[2020-11-14 20:28] LABS: ALBUMIN 3.6 g/dL (3.4-5.0); ALBUMIN/GLOBULIN RATIO 1.1 (1.0-1.7); ALK PHOS 283 U/L (46-116); ALT (SGPT) 111 U/L (14-59); AST (SGOT) 185 U/L (15-37); LIPASE 195 U/L (73-393); TOTAL BILIRUBIN 0.6 mg/dL (0.2-1.0); TOTAL PROTEIN 6.8 g/dL (6.4-8.2)
[2020-11-14] MEDS ORDERED: ONDANSETRON PF 4 MG/2 ML VIAL. IVP PRN (21:00)
--- NOTE | 2020-11-14 21:09 | NUR ---
Admission Note: pt transported via EMS from ED to ICU 6, pt ambulated from cart to bed independently, steady gait observed, VSS, no c/o pain or n/v at this time, pt oriented to room/call light/hospital routines/ and discussed plan of care for the night, pt verbalized understanding.
[2020-11-14 21:30] VITALS: BP 155/94
[2020-11-14] MEDS ORDERED: LEVO175T5 PO ×2 (21:56)
[2020-11-14] MEDS ORDERED: PREG100C PO (21:56)
[2020-11-14] MEDS ORDERED: OLME20TA17 PO (21:56)
[2020-11-14] MEDS ORDERED: CELE50CA PO (21:56)
[2020-11-14 23:03] VITALS: BP 145/91
--- NOTE | 2020-11-15 05:15 | NUR ---
Shift Note: Pt a/o x4, VSS, no c/o pain or n/v at this time, cardiology consulted this am, troponin negative x3, pt anticipating discharge to home today.
--- NOTE | 2020-11-15 06:36 | EKG ---
[facility] ED [facility] [address] [place] [id number] Test Date: 2020-11-14 Test Time: 19:12:16 Pat Name: SANTINO MACDONALDGLADYS Department: Room: Gender: F [employer] Operator: GIULIA : 1965 Requested By: MOISES CESPEDES Order Number: [id number] Reading MD: Measurements Intervals [place] Rate: 83 P: 51 MT: 194 QRS: 4 QRSD: 80 T: 22 QT: 366 QTc: 436 Interpretive Statements SINUS RHYTHM QRS(T) CONTOUR ABNORMALITY CONSIDER INFERIOR INFARCT POSSIBLY ABNORMAL ECG RI6.02 No previous ECG available for comparison
[2020-11-15 07:00] VITALS: BP 134/92
[2020-11-15 10:25] LABS: ALBUMIN 3.4 g/dL (3.4-5.0); CALCIUM 8.4 mg/dL (8.5-10.1); CREATININE 0.9 mg/dL (0.6-1.0); GFR 64.8; TOTAL BILIRUBIN 0.4 mg/dL (0.2-1.0); TOTAL PROTEIN 6.9 g/dL (6.4-8.2)
[2020-11-15 11:00] VITALS: BP 146/91
--- NOTE | 2020-11-15 11:00 | NUR ---
Dr. Tse here to see pt. Pt has been chest pain free since admission to unit. Pt may be discharged if ok with cardiology.
--- NOTE | 2020-11-15 12:09 | PREOP HP ---
DATE OF SERVICE: NO DICTATION [address] MD DR: DEVON/kam JOB#: [id number] / [id number]
--- NOTE | 2020-11-15 12:46 | HP ---
ADMIT DATE: 11/14/2020 HISTORY OF PRESENT ILLNESS: The patient is a 55-year-old female patient who came to the Emergency Room with a complaint of retrosternal chest pain. According to her, the pain started while she was shopping at [employer] At that time, the pain was according to her, rated at 10/10 in severity, associated with nausea, vomiting, diaphoresis, but no shortness of breath. She came to the urgent care where she was evaluated and eventually was transferred to the Emergency Room where she was seen and admitted for further evaluation and treatment. According to her, she has had this similar pain about 5 years ago and also a year ago and she has had stress test done twice at [facility], although no cardiac catheterization was done and according to her, chest pain has been worsening since last , although she has never used any nitroglycerin according to her because she has never have it and the pain according to her lasted about 2 hours and has subsided spontaneously. Apparently, she has never received any nitroglycerin; however, she did receive fentanyl injection. She was investigated in the Emergency Room and her first set of cardiac enzymes showed troponin to be less than 0.017. Her D-dimer was 0.45 and her EKG showed that the patient was in sinus rhythm with a heart rate of 83 with no evidence of ST segment elevation or depression. The patient was admitted to do 2 more sets of cardiac enzymes, check her fasting lipid profile and consult the Cardiology team. PAST MEDICAL HISTORY: Significant for hypertension, hyperlipidemia, type 2 diabetes. She has also history of hypothyroidism, bronchial asthma, obstructive sleep apnea, fibromyalgia, together with generalized osteoarthritis and fatty liver. PAST SURGICAL HISTORY: Significant for , bladder sling, total abdominal hysterectomy, cholecystectomy and ovarian cyst removal. ALLERGIES: SHE IS ALLERGIC TO MORPHINE. MEDICATIONS: She is currently on following medications: She is on atorvastatin calcium 80 mg at bedtime. She is on Vascepa 0.5 g twice a day, metoprolol succinate 25 mg once a day, olmesartan, medoxomil 20 mg once a day, Celebrex 50 mg p.o. daily, pregabalin 100 mg 3 times a day, ondansetron 4 mg every 6-8 hours, famotidine 20 mg twice a day, metformin 1000 mg daily. She is on Ozempic 1 mg in 0.75 mL injection subcutaneously weekly, levothyroxine sodium 175 mcg once a day and levothyroxine sodium 350 mcg every Wednesday, Wednesday, and Wednesday. FAMILY HISTORY: She has 10 brothers and 4 sisters, 3 of her brothers are , one with a complication of type 2 diabetes, one has cancer and the other has myocardial infarction, 3 of her sisters , 2 because of end-stage kidney disease and 1 with cancer of unknown primary. Her father at age of 78 because of congestive heart failure and her mother at the age of 56 because of a massive heart attack. SOCIAL HISTORY: She is , has 5 daughters and 3 sons. She has never smoked, does not drink alcohol or any recreational drugs. She is retired from [employer], used to work for [employer]. REVIEW OF SYSTEMS: As per history of present illness. PHYSICAL EXAMINATION: GENERAL: On arrival to the Emergency Room, she looked well and was clearly in no apparent respiratory distress. No pallor, jaundice, cyanosis or thyromegaly. No jugular venous distention or limb edema. VITAL SIGNS: Her heart rate was 83, blood pressure 150/91, temperature was 98.1, respiratory rate was 18 and oxygen saturation was 95%. HEAD, EYES, EARS, NOSE AND THROAT: Normocephalic, atraumatic. NECK: Supple. HEART: Normal first and second heart sounds. No gallop or murmur. CHEST: Clear to auscultation. No crepitation or rhonchi. ABDOMEN: Distended, soft, nontender. NEUROLOGIC: She was awake, alert, responding appropriately. All cranial nerves intact. EXTREMITIES: She moves extremities without difficulty. She ambulates without assistance or assistive devices. LABORATORY DATA: While in the Emergency Room, she had lab work done, which showed a white cell count of 7000, hemoglobin 13, hematocrit 39, MCV 90 and platelet count of 289,000 with normal manual differential. Her chemistry showed a serum sodium 144, potassium 3.9, chloride 107, bicarbonate 31, anion gap of 6, BUN 26, creatinine 0.8, estimated GFR was 74 mL per minute. Her glucose 114, calcium was 9, magnesium was 2. Total bilirubin is normal; however, AST, ALT, alkaline phosphatase are elevated. Her CK was 63. First set of cardiac enzymes showed troponin to be less than 0.017. Total protein 6.8, albumin was 3.6. Lipase was 195. Her prothrombin time was 10.2, INR 1, aPTT was 21 and D-dimer was 0.45. Urinalysis was essentially unremarkable and toxic screen showed that her blood alcohol level was less than 10. ASSESSMENT AND PLAN: The patient was therefore admitted with chest pain. We will do 2 more sets of cardiac enzyme. We will check her fasting lipid profile and consult the Cardiology team. She has obviously multiple risk factors including hypertension, hyperlipidemia and diabetes. She has also a strong family of her mother at age of 56 because of myocardial infarction and one of her brothers also in his 50s because of myocardial infarction. [address]I ST[address] MD DR: DEVON/kam JOB#: [id number] / [id number]
--- NOTE | 2020-11-15 13:58 | PDOC2 ---
CONSULT DOS: DATE: 11/15/20 TIME: 13:57 Reason for Consult: Chest pain Referring Physician: Dr. Tse Chief Complaint Chest pain Source: Chart review, Patient Problem List Problems Medical Problems: (1) Chest pain Status: Acute History of Present Illness 55 y/o pleasant female presented complaining of retrosternal chest pressure 10/10 severity associated with nausea and mild dyspnea not related to exertion or food intake. She denied any orthopnea/PND, palpitations or syncope. She apparently underwent cardiac cath at 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 She has not had any subsequent cardiology follow ups. Past Medical History Hypertension Hyperlipidemia DM-2 Hypothyroidism Asthma Obstructive sleep apnea Fibromyalgia Osteoarthritis Past Surgical History section Hysterectomy Bladder sling surgery Cholecystectomy Family History Cancer, CAD, CHF Social History Non smoker, non drinker and denied any drug use Current Medications Current Medications Aspirin (Evaristo Aspirin) 325 mg 1X ONCE PO Last administered on 11/14/20at 19:58; Start 11/14/20 at 19:15; Stop 11/14/20 at 19:35; Status DC Nitroglycerin (Nitrostat) 0.4 mg PRN Q5MIN PRN SL CP RATING > 1/10; Start 11/14/20 at 19:15; Stop 11/15/20 at 19:14 Fentanyl Citrate (Fentanyl 2ml Vial) 50 mcg PRN Q15MIN PRN IV PAIN GREATER THAN 3/10; Start 11/14/20 at 19:15; Stop 11/15/20 at 08:26; Status DC Multi-Ingredient Mouthwash/Gargle (Gi Cocktail) 20 ml 1X ONCE PO Last administered on 11/14/20at 19:58; Start 11/14/20 at 19:15; Stop 11/14/20 at 19:35; Status DC Famotidine (Pepcid Vial) 20 mg 1X ONCE IVP Last administered on 11/14/20at 20:06; Start 11/14/20 at 19:15; Stop 11/14/20 at 19:35; Status DC Ondansetron HCl (Zofran) 4 mg PRN Q4HRS PRN IVP NAUSEA/VOMITING; Start 11/14/20 at 21:00; Stop 11/15/20 at 20:59 Fentanyl Citrate (Fentanyl 2ml Vial) 50 mcg PRN Q1HR PRN IVP PAIN; Start 11/14/20 at 21:00; Stop 11/15/20 at 08:26; Status DC Nitroglycerin (Nitrostat) 0.4 mg PRN Q5MIN PRN SL CHEST PAIN; Start 11/14/20 at 21:00; Stop 11/15/20 at 20:59 Active Scripts Active Pepcid (Famotidine) 20 Mg Tablet 20 Mg PO BID 30 Days Ondansetron Odt (Ondansetron) 4 Mg Tab.rapdis 1 Tab PO PRN Q6-8HRS PRN Reported Celebrex (Celecoxib) 50 Mg Capsule 50 Mg PO DAILY Benicar (Olmesartan Medoxomil) 20 Mg Tablet 20 Mg PO DAILY Lyrica (Pregabalin) 100 Mg Capsule 100 Mg PO TID Levothyroxine Sodium 175 Mcg Tablet 350 Mcg PO QMONFR Levothyroxine Sodium 175 Mcg Tablet 175 Mcg PO QWE Vascepa (Icosapent Ethyl) 0.5 Gm Capsule 0.5 Gm PO BID Atorvastatin Calcium 80 Mg Tablet 80 Mg PO DAILY Ozempic (Semaglutide) 1 Mg/0.75 Ml Pen.injctr 1 Mg SQ WEEKLY Fridays Metformin Hcl 1,000 Mg Tablet 1,000 Mg PO [id number] Metoprolol Succinate ( Xl ) (Metoprolol Succinate) 25 Mg Tab.er.24h 25 Mg PO DAILY Synthroid (Levothyroxine Sodium) 175 Mcg Tablet 1 Tab PO QTUTHSASU Allergies: Coded Allergies: morphine (Verified Allergy, Unknown, 10/25/20) PSYCHOLOGICAL ROS: No: Hallucinations Eyes: No: Loss of vision HEENT: No: Epistaxis Respiratory: YES: Shortness of breath; No: Hemoptysis Cardiovascular: yes: Chest Pain Gastrointestinal: YES: Nausea Genitourinary: No: [place] Neurological: No: Seizures Skin: No: Rash General: Alert, Oriented X3 HEENT: Atraumatic, PERRLA Lungs: Clear to auscultation Heart: Regular rate Abdomen: Soft, No tenderness Extremities: No edema Neuro: Normal speech Psych/Mental Status: Mood NL VITALS Vital Signs Date Time Temp Pulse Resp B/P (MAP) Pulse Ox O2 Delivery O2 Flow Rate FiO2 11/15/20 08:00 Room Air 11/15/20 07:00 98.0 80 18 134/92 (106) 97 Labs Laboratory Tests Test 11/14/20 19:17 11/14/20 19:40 11/14/20 22:08 11/15/20 01:12 Urine Collection Type Unknown Urine Color Yellow Urine Clarity Hazy Urine pH 6.0 Urine Specific [place] 1.025 Urine Protein Neg (NEG-TRACE) Urine Glucose (UA) Neg mg/dL (NEG) Urine Ketones (Stick) Neg mg/dL (NEG) Urine Blood Trace (NEG) Urine Nitrite Neg (NEG) Urine Bilirubin Neg (NEG) Urine Urobilinogen Dipstick 4.0 mg/dL (0.2 mg/dL) Urine Leukocyte Esterase Neg (NEG) Urine RBC Rare /HPF (0-2) Urine WBC Rare /HPF (0-4) Urine Squamous Epithelial Cells Mod /LPF Urine Bacteria Mod /HPF (0-FEW) Urine Mucus Slight /LPF White Blood Count 7.0 x10^3/uL (4.0-11.0) Red Blood Count 4.35 x10^6/uL (3.50-5.40) Hemoglobin 13.0 g/dL (12.0-15.5) Hematocrit 39.2 % (36.0-47.0) Mean Corpuscular Volume 90 fL (79-100) Mean Corpuscular Hemoglobin 30 pg (25-35) Mean Corpuscular Hemoglobin Concent 33 g/dL (31-37) Red Cell Distribution Width 14.1 % (11.5-14.5) Platelet Count 289 x10^3/uL (140-400) Neutrophils (%) (Auto) 58 % (31-73) Lymphocytes (%) (Auto) 29 % (24-48) Monocytes (%) (Auto) 10 % (0-9) Eosinophils (%) (Auto) 2 % (0-3) Basophils (%) (Auto) 2 % (0-3) Neutrophils # (Auto) 4.1 x10^3uL (1.8-7.7) Lymphocytes # (Auto) 2.1 x10^3/uL (1.0-4.8) Monocytes # (Auto) 0.7 x10^3/uL (0.0-1.1) Eosinophils # (Auto) 0.1 x10^3/uL (0.0-0.7) Basophils # (Auto) 0.1 x10^3/uL (0.0-0.2) Prothrombin Time 10.2 SEC (9.4-11.4) Prothromb Time International Ratio 1.0 (0.9-1.1) Activated Partial Thromboplast Time 21 SEC (23-33) D-Dimer ([place]) 0.45 mg/L (0.00-0.50) Sodium Level 144 mmol/L (136-145) 143 mmol/L (136-145) Potassium Level 3.9 mmol/L (3.5-5.1) 4.0 mmol/L (3.5-5.1) Chloride Level 107 mmol/L (98-107) 107 mmol/L (98-107) Carbon Dioxide Level 31 mmol/L (21-32) 27 mmol/L (21-32) Anion Gap 6 (6-14) 9 (6-14) Blood Urea Nitrogen 26 mg/dL (7-20) 26 mg/dL (7-20) Creatinine 0.8 mg/dL (0.6-1.0) 0.9 mg/dL (0.6-1.0) Estimated GFR (Cockcroft-Gault) 74.2 64.8 BUN/Creatinine Ratio 33 (6-20) 29 (6-20) Glucose Level 114 mg/dL (70-99) 107 mg/dL (70-99) Calcium Level 9.0 mg/dL (8.5-10.1) 8.4 mg/dL (8.5-10.1) Magnesium Level 2.0 mg/dL (1.8-2.4) Total Bilirubin 0.6 mg/dL (0.2-1.0) 0.4 mg/dL (0.2-1.0) Aspartate Amino Transf (AST/SGOT) 185 U/L (15-37) 212 U/L (15-37) Alanine Aminotransferase (ALT/SGPT) 111 U/L (14-59) 188 U/L (14-59) Alkaline Phosphatase 283 U/L (46-116) 310 U/L (46-116) Creatine Kinase 63 U/L (26-192) Creatine Kinase MB (Mass) < 0.5 ng/mL (0.0-3.6) Creatine Kinase MB Relative Index 0.8 % (0-4) Troponin I Quantitative < 0.017 ng/mL (0-0.055) < 0.017 ng/mL (0-0.055) < 0.017 ng/mL (0-0.055) Total Protein 6.8 g/dL (6.4-8.2) 6.9 g/dL (6.4-8.2) Albumin 3.6 g/dL (3.4-5.0) 3.4 g/dL (3.4-5.0) Albumin/Globulin Ratio 1.1 (1.0-1.7) 1.0 (1.0-1.7) Lipase 195 U/L (73-393) Ethyl Alcohol Level < 10 mg/dL (0-10) Assessment/Plan 1. CP with atypical features and most probably GI etiology. [place] ruled out. Cardiac cath 2016 did not show any lesions needing intervention. Plan echo and ischemic evaluation with stress test as outpatient. 2. HTN: controlled 3. HLP: statins 4. DM-2: treat per IM 5. Hypothyroidism: on levothyroxine Thank you for your consultation SKYLAR CABEZAS MD Nov 15, 2020 13:58
--- NOTE | 2020-11-15 14:40 | NUR ---
Dr. Mares here to see pt. Pt will need an outpatient stress test, his office will call pt to schedule. Pt will be discharged home.
--- NOTE | 2020-11-15 14:50 | NUR ---
reviewed all discharge instructions with pt. Pt was provided a written copy of instructions. IV was dc'd with tip intact. Pt was wheeled to pov upon discharge.
--- NOTE | 2020-11-15 17:21 | DS ---
DATE OF DISCHARGE: 11/15/2020 HOSPITAL COURSE: The patient is a 55-year-old female patient, who was admitted with chest pain that is retrosternal, rated according to her at about 10/10 while shopping at [employer] and she did have some nausea and vomiting and diaphoresis, but no shortness of breath. She was seen initially at the urgent clinic and was transferred to our Emergency Room where she had had an EKG and first set of cardiac enzyme was negative. She did have 2 more sets of cardiac enzymes that ruled out myocardial infarction and in consultation with the onsite case manager, the patient was discharged home to be followed as an outpatient for stress testing. PHYSICAL EXAMINATION: GENERAL: When I saw her this afternoon, she looked well and was clearly in no apparent distress, slightly pale, but no jaundice, cyanosis or thyromegaly. No jugular venous distention. No limb edema. VITAL SIGNS: Her heart rate was 79, blood pressure was 146/91, temperature was 97.9, respiratory rate was 12 and oxygen saturation was 97% on room air. HEAD, EYES, EARS, NOSE AND THROAT: Showed normocephalic, atraumatic. NECK: Supple. HEART: Normal first and second heart sounds. No gallop or murmur. CHEST: Clear to auscultation. No crepitation or rhonchi. ABDOMEN: Distended, soft, nontender. NEUROLOGIC: She was grossly intact. LABORATORY DATA: This morning showed a serum sodium of 143, potassium 4, chloride 107, bicarbonate 27, anion gap of 9, BUN 26, creatinine 0.9, estimated GFR was 65 mL per minute. Her glucose was 107, calcium was 8.4. Total bilirubin is normal. AST, ALT, alkaline phosphatase were normal. She had 2 more sets of cardiac enzymes that ruled out acute myocardial infarction. Her total protein 6.9, albumin 3.4. DISCHARGE MEDICATIONS: She was discharged home to continue on atorvastatin calcium 80 mg once a day, Celebrex 50 mg once a day, famotidine 20 mg twice a day, ____ 0.5 grams twice a day; levothyroxine sodium 175 mcg on Wednesday, and Wednesday, levothyroxine sodium 175 mcg every Wednesday, she is on levothyroxine sodium 350 mcg every Wednesday, Wednesday; metformin 1000 mg once a day, metoprolol succinate 25 mg once a day, olmesartan medoxomil for Benicar 20 mg once a day, ondansetron ODT 4 mg every 6-8 hours, pregabalin for Lyrica 100 mg 3 times a day, and Ozempic 1 mg subcutaneously once a week. FINAL DISCHARGE DIAGNOSES: Chest pain, acute myocardial infarction ruled out. OTHER MEDICAL PROBLEMS: Include: A. Hypertension. B. Hyperlipidemia. C. Type 2 diabetes mellitus. D. Hypothyroidism. E. Bronchial asthma. F. Obstructive sleep apnea. G. Fibromyalgia. [address] MD DR: DEVON/kam JOB#: [id number] / [id number]
== END 2020-11-15 14:55 | disposition home or self-care (01) ==
LOC: ER 19:04 → ICU 20:41
PROVIDERS: ADMIT Internal Medicine; ATTEND Internal Medicine
DX: R07.89 Other chest pain (principal); I10 Essential (primary) hypertension; E11.9 Type 2 diabetes mellitus without complications; E78.5 Hyperlipidemia, unspecified; J45.909 Unspecified asthma, uncomplicated; G47.33 Obstructive sleep apnea (adult) (pediatric); M79.7 Fibromyalgia; E03.9 Hypothyroidism, unspecified; K76.0 Fatty (change of) liver, not elsewhere classified; E78.00 Pure hypercholesterolemia, unspecified; Z90.710 Acquired absence of both cervix and uterus; Z98.891 History of uterine scar from previous surgery; Z90.49 Acquired absence of other specified parts of digestive tract; Z98.890 Other specified postprocedural states; Z79.82 Long term (current) use of aspirin; Z79.899 Other long term (current) drug therapy
CPT/HCPCS: 36415; 71045; 80053; 81001; 82553; 83690; 83735; 84443; 84484; 85025; 85379; 85610; 85730; 87086; 93005; 96374; 99285; G0378; G0480; J3490; 87077; 87186; G0379